=== PATIENT | male | born 1965 | race African-American/Black ===

== ENCOUNTER 2024-11-23 09:16 | Emergency (ER) | payer MEDICAID | END 2024-11-23 10:29 | disposition home or self-care (01) | LOC: ERS 09:16 | DX: Z76.0 Encounter for issue of repeat prescription (principal); I10 Essential (primary) hypertension; G40.909 Epilepsy, unspecified, not intractable, without status epilepticus; T46.5X6A Underdosing of other antihypertensive drugs, initial encounter; T42.6X6A Underdosing of other antiepileptic and sedative-hypnotic drugs, initial encounter; Z91.138 Patient's unintentional underdosing of medication regimen for other reason; Z79.899 Other long term (current) drug therapy | CPT/HCPCS: 99281 ==